=== PATIENT | female | born 1935 | race Caucasian/White ===

== ENCOUNTER 2024-11-12 13:32 | Emergency (ER) | payer MEDICARE, BC, SELFPAY ==
[2024-11-12 13:43] VITALS: BP 145/78
[2024-11-12 14:00] LABS: % Basophils 0.5 % (0-2); % Eosinophils 2.4 % (0-6); % Immature Granulocytes 0.3 % (0-0.5); % Lymphocytes 22.3 % (20.5-51.1); % Monocytes 8.7 % (1.7-9.3); % Neutrophils 65.8 % (42.2-75.2); Absolute Eosinophils 0.2 10^3/uL (0-0.7); Absolute Lymphocytes 1.8 10^3/uL (1.2-3.4); Absolute Monocytes 0.7 10^3/uL (0.1-0.6); Absolute Neutrophils 5.2 10^3/uL (1.4-6.5); Hematocrit 41.9 % (37.0-47.0); Hemoglobin 14.3 g/dL (12.0-16.0); Mean Corp Hgb Conc. 34.1 g/dL (33.0-37.0); Mean Corpuscular Hgb 32.3 pg (27.0-31.0); Mean Corpuscular Volume 94.6 fL (81.0-99.0); Mean Platelet Volume 9.6 fL (7.4-10.4); Nucleated Red Blood Cells % 0 %; Platelet Count 194 10^3/uL (130-400); Red Blood Cell Count 4.43 10^6/uL (4.20-5.40); Red Cell Dist. Width 12.7 % (11.5-14.5); White Blood Cell Count 7.8 10^3/uL (4.8-10.8)
[2024-11-12 14:11] LABS: INR 1.35
[2024-11-12 14:14] LABS: ALT (SGPT) 19 U/L (0-35); AST (SGOT) 32 U/L (14-36); Albumin 4.2 g/dl (3.5-5.0); Alkaline Phosphatase 140 U/L (38-126); Blood Urea Nitrogen 26 mg/dl (7-17); Calcium 9.4 mg/dl (8.4-10.2); Carbon Dioxide 26 mmol/L (22-30); Chloride 100 mmol/L (98-107); Glucose 173 mg/dl (70-99); Potassium 4.9 mmol/L (3.5-5.1); Sodium 136 mmol/L (135-145); Total Protein 6.6 g/dl (6.3-8.2); eGFR > 60.00
[2024-11-12 14:22] LABS: Troponin I < 0.012 ng/ml
[2024-11-12 15:11] VITALS: BP 144/90; BMI 18.1
--- NOTE | 2024-11-12 15:39 | ED.GENMED ---
History of Present Illness
General
Chief Complaint: Heart Rate Problem
Source: patient and family (Patient son at bedside)
Exam Limitations: none
Time Seen by Provider: 11/12/24 15:05
Nursing documentation reviewed up to this point in time: agreed with
History of Present Illness
History of Present Illness:
Patient is an 89-year-old female with history atrial fibrillation, hypertension, with pacemaker presenting to the emergency department from primary care office for evaluation of abnormal EKG. Patient states she was at her PCPs office morning for
routine visit with a performed an EKG, saw some 'abnormalities 'and referred to the emergency department. Patient states she feels well other than mild fatigue which has been ongoing over the past week or so. Patient denies any exertional chest
pain or dyspnea. No lightheadedness, dizziness. No fever, cough, lower extremity edema.
Patient has been on Eliquis for the past year and is compliant with medication.
Past History
Past History
ED Past Medical History: Arrthythmia (Atrial fibrillation several years ago) and Other (Rheumatic fever status post aVR and MVR, PAF, hypertension, hypothyroidism, tubal ligation, status post cholecystectomy)
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
Social History
Tobacco: Non-smoker
Alcohol: None
Living: with family
Family History
Family History: Diabetes and CAD
Review of Systems
Review of Systems
Allergies reviewed?: Yes
All Other Systems: ROS reviewed and negative except as documented in HPI and ROS
Phy Exam
Physical Exam
Physical Exam:
Vitals: Mildly hypertensive, otherwise stable vital signs. Afebrile
General: Patient is frail appearing. No apparent distress
Skin: Warm and dry, no rashes or lesions
Head: Normocephalic, atraumatic
Eyes: Sclera nonicteric. EOMs intact. No nystagmus.
Throat: Protecting airway
Neck: Normal ROM, no cervical spine tenderness, no meningismus. No JVD
Cardiac: Regular rate and rhythm, no murmurs. 2+ radial pulse bilateral
Pulm: Normal respiratory effort, no wheezes, rales, rhonchi heard on exam.
Abdomen: No abdominal tenderness.
Extremities: No evidence of cyanosis or edema. Palpable DP pulses bilaterally
Neuro: AAOx3. Grossly intact.
Psychiatric: Normal affect.
Course
Orders/Labs/Results
Orders:
Orders
11/12/24 13:34
EKG [Electrocardiogram (*1)] Urgent
Reason for Study: Abnormal EKG
EKG- Treatment ONCE
11/12/24 13:53
CMP [Comprehensive Metabolic Panel] Urgent
Complete Blood Count/With Diff Urgent
PT/INR [Prothrombin Time] Urgent
Troponin I Urgent
11/12/24 15:30
pacemaker [Interrogate Pacemaker- Treatment] ONCE
11/12/24 15:43
COVID-19 Antigen Urgent
Source: Nasal Swab
Influenza A+B Rapid Molecular Urgent
ODALYS Source: Nasal Swab
Specimen Description:
Abnormal Lab Results
11/12/24
13:53
MCH 32.3 H pg
(27.0-31.0)
Absolute Monos (auto) 0.7 H 10^3/uL
(0.1-0.6)
PT 17.0 H Sec
(11.4-14.6)
BUN 26 H mg/dl
(7-17)
Glucose 173 H mg/dl
(70-99)
Alkaline Phosphatase 140 H U/L
(38-126)
11/12/24 13:53
11/12/24 13:53
Vital Signs
Initial and Last Documented VS:
Initial Vital Signs
Temp Pulse Resp BP Pulse Ox
98.6 F 104 20 145/78 98
11/12/24 13:43 11/12/24 13:43 11/12/24 13:43 11/12/24 13:43 11/12/24 13:43
Last Documented Vital Signs
Temp Pulse Resp BP Pulse Ox
98.6 F 65 16 153/89 97
11/12/24 13:43 11/12/24 17:10 11/12/24 17:10 11/12/24 17:10 11/12/24 17:10
MDM/Problems Addressed
Differential Diagnosis Includes:
Not limited to: Atrial fibrillation, malfunctioning pacemaker, acute coronary syndrome, etc.
MDM/Problems Addressed:
89-year-old female presents from routine PCP visit after concern of abnormal EKG findings. Patient asymptomatic without specifically any exertional chest pain, dyspnea, lightheadedness/dizziness, neurologic symptoms. No fever or cough. Patient
compliant with Eliquis for atrial fibrillation. Vitals and physical exam as above. EKG obtained upon arrival to emergency department shows a ventricular paced rhythm with a rate of 82. Did compare to EKG performed at PCP which looks like atrial
fibrillation with occasional paced rhythm, rate 67 bpm. Basic screening labs, troponin sent in triage without acute abnormalities. Ultimately�do not suspect acute coronary syndrome. Patient compliant with Eliquis for atrial fibrillation and
otherwise asymptomatic today. Will interrogate pacemaker to ensure functioning properly. Anticipate discharge
Update: Pacemaker interrogated and report reviewed with attending physician. Device appears to be functioning properly with no evidence of recent arrhythmia. Patient remained asymptomatic with ventricular paced rhythm on clinical research monitor. She
remains hemodynamically stable. At this point�feel stable for discharge home with cardiology follow-up as scheduled. Discussed compliance with Eliquis. Close return precautions discussed with the patient and son who expressed verbal understanding.
Chronic conditions affecting care:
Atrial fibrillation on Eliquis, history of valvular disorders with pacemaker, hypertension
Acute Exacerbation and/or Progression of Chronic Illness:
Acutely hypertensive
*Pulse Oximetry
Patient hypoxic: no
*EKG
Interpreted by ED Provider?: Yes
EKG Intrepretation Date: 11/12/24
Interpretation: abnormal
Comparison EKG: changes noted
Heart Rate: 82
Rate: normal
Rhythm: ventricular paced
[place]: normal axis
Interval: long QT
*Home Mortgage Disclosure Act Specialist Interpretation
Rate: normal
Interpretation: abnormal
Heart Rate: 80
Rhythm: ventricular paced
*Critical Care Note
Total Time (30-74mins, 75-104mins- exclusive of procedures): Not Applicable
Data Reviewed
Review of Other/Old Records Reveals: Testing (EKG performed and primary care office 11/12/2024-sinus rhythm with PVCs rate 67 bpm)
ED Attending Note
-
Portions of this chart may have been created with voice recognition software.� Occasional wrong word or��sound alike� substitutions may have occurred due to the inherent limitations of voice recognition software.
Discharge Plan
Departure
Patient Disposition: Home (Routine Discharge)
Date of Disposition: 11/12/24
Time of Disposition: 17:02
Patient with high blood pressure during this ER visit?: Yes
Condition: Good
Covid-19: Negative COVID-19
Discharge Problem:
Atrial fibrillation with normal ventricular rate
Instructions: Atrial Fibrillation (DC), Pacemakers, BLOOD PRESSURE
Prescriptions:
No Action
valsartan [Diovan] 80 MG tablet
80 mg PO DAILY
omeprazole [Prilosec] 40 MG capsule,delayed release(DR/EC)
1 tab PO DAILY
Patient Comments:
pt uncertain of dosage - low dosage per pt - Rx strength
levothyroxine 50 MCG tablet
50 mcg PO DAILY
furosemide 20 MG tablet
20 mg PO DAILY
metoprolol tartrate 25 MG tablet
PO DAILY
Patient Comments:
? dose
Amiodarone HCl
DAILY
Patient Comments:
? dose
Coumadin
Patient Comments:
daily
? unknown
azithromycin [Zithromax] 250 MG tablet
250 mg PO UD Qty: 0 0RF
Referrals:
UNKNOWN - PT DOES,NOT KNOW [Unknown Provider] -
Activity Restrictions/Additional Instructions:
Return to the emergency department with any chest pain, shortness of breath/difficulty breathing, dizziness/lightheadedness, changes in mental status, worsening in current symptoms, or any other concern
-As discussed�your lab work in emergency department showed no clinically significant abnormalities today. Your EKG in emergency department showed a paced rhythm. Your pacemaker appears to be functioning properly. Continue to take all medications
including Eliquis as prescribed.
-It is important stay well-hydrated.
-Contact your leadership program intern/EP physician for further evaluation/management as needed
Monitor your symptoms closely and return to the emergency department with any acute worsening/new symptoms or any other concerns
Interventions
Interventions:
*Risk Screen - Suicide Last Done: 11/12/24 13:43
*General Assessment Last Done: 11/12/24 15:12
*Neglect/Abuse Screening Last Done: 11/12/24 13:43
*ED- Fall Risk Assessment Last Done: 11/12/24 15:12
*ED COVID-19 Vaccine History Last Done: 11/12/24 15:12
*Nursing Disposition Last Done: 11/12/24 17:10
ED- Cardiac Assessment Last Done: 11/12/24 15:12
ED- Pulmonary Assessment Last Done: 11/12/24 15:12
Discharge Date and Time
Discharge Date/Time: 11/12/24 17:21
Print Language: ALGERIAN
[2024-11-12 16:00] VITALS: BP 139/77
[2024-11-12 16:19] LABS: COVID-19 Antigen Negative (Negative)
[2024-11-12 17:10] VITALS: BP 153/89
== END 2024-11-12 17:21 | disposition home or self-care (01) ==
LOC: EMR 13:32
PROVIDERS: Physician Assistant; EMERGENCY PHYSICIAN Student in an Organized Health Care Education/Training Program
DX: I48.0 Paroxysmal atrial fibrillation (principal); I10 Essential (primary) hypertension; Z95.0 Presence of cardiac pacemaker; Z11.52 Encounter for screening for COVID-19; Z79.01 Long term (current) use of anticoagulants
CPT/HCPCS: 99284; 93288; 80053; 84484; 85025; 85610; 87502; 87811; 93005